=== PATIENT | female | born 1975 ===

== ENCOUNTER 2017-07-15 00:07 | Inpatient (IN) | payer SELFPAY ==
[2017-07-15] MEDS ORDERED: Misoprostol 25 MCG (1/4 of 100 MCG) Tab PO ONE ×5 (01:09→16:44)
[2017-07-15] MEDS ORDERED: Terbutaline 1 MG/ML SDV SUBCUT PRN (01:09)
[2017-07-15] MEDS ORDERED: Oxytocin/0.9 % Sodium Chloride 30 UNIT/500 ML BAG IV SCH ×2 (01:15→01:30)
[2017-07-15] MEDS ORDERED: Sodium Chloride 0.9% 10 ML Syringe FLUSH PRN (01:18)
[2017-07-15] MEDS ORDERED: Sodium Chloride 0.9% 2.5 ML Syringe FLUSH PRN (01:18)
[2017-07-15] MEDS ORDERED: Methylergonovine 0.2 MG/1 ML Amp IM PRN (01:18)
[2017-07-15] MEDS ORDERED: Carboprost Tromethamine 250 MCG/1 ML Amp IM PRN (01:18)
[2017-07-15] MEDS ORDERED: Nalbuphine 10 MG/1 ML Vial IVPUSH PRN (01:18)
[2017-07-15] MEDS ORDERED: Butorphanol 1 MG/ML SDV IVPUSH PRN (01:18)
[2017-07-15] MEDS ORDERED: Water For Irrigation,Sterile 1,000 ML Container IRR PRN (01:18)
[2017-07-15] MEDS ORDERED: Lidocaine 1% 50 ML MDV INJECT PRN (01:18)
[2017-07-15] MEDS ORDERED: Tranexamic Acid 1,000 MG in Sodium Chloride 0.9% 100 ML IV PRN (01:18)
[2017-07-15] MEDS ORDERED: Misoprostol 200 MCG Tab PO PRN (01:18)
[2017-07-15] MEDS: Misoprostol 25 MCG (1/4 of 100 MCG) Tab VAG SCH ×3 (02:09→17:13)
[2017-07-15] MEDS ORDERED: Misoprostol 50 MCG (1/2 of 100 MCG) Tab VAG ONE (06:00)
[2017-07-15] MEDS ORDERED: Ampicillin 2 GM in Sodium Chloride 0.9% 100 ML IV ONE (06:00)
[2017-07-15] MEDS ORDERED: Misoprostol 25 MCG (1/4 of 100 MCG) Tab VAG ONE (06:35)
[2017-07-15] MEDS ORDERED: Ampicillin 2 GM in Sodium Chloride 0.9% 100 ML IV PRN (08:23)
[2017-07-15] MEDS ORDERED: Docusate Sodium 100 MG Cap PO PRN (09:03)
[2017-07-15] MEDS: Prenatal Multivitamin and Multimineral with Iron Tab PO SCH (09:15)
[2017-07-15] MEDS: Ferrous Sulfate 325 MG Tab PO SCH (09:15)
[2017-07-15] MEDS: valACYclovir 500 MG Tab PO SCH (09:15)
[2017-07-15] MEDS: Ampicillin 1 GM in Sodium Chloride 0.9% 50 ML IV SCH ×3 (10:43→20:41)
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
[2017-07-15] MEDS ORDERED: Misoprostol 25 MCG (1/4 of 100 MCG) Tab ONE (16:50)
[2017-07-15] MEDS ORDERED: hydrOXYzine Pamoate 25 MG Cap PO PRN (20:44)
[2017-07-16] MEDS ORDERED: Misoprostol 25 MCG (1/4 of 100 MCG) Tab PO SCH (01:15)
[2017-07-16] MEDS: Lactated Ringers 1,000 ML IV SCH ×2 (02:06→17:40)
[2017-07-16] MEDS: Misoprostol 25 MCG (1/4 of 100 MCG) Tab VAG SCH ×4 (02:07→14:30)
[2017-07-16] MEDS: Misoprostol 25 MCG (1/4 of 100 MCG) Tab PO SCH ×4 (02:07→14:30)
[2017-07-16] MEDS: valACYclovir 500 MG Tab PO SCH (08:10)
[2017-07-16] MEDS: Prenatal Multivitamin and Multimineral with Iron Tab PO SCH (08:12)
--- NOTE | 2017-07-16 08:42 | PCM.PNLD ---
Labor Progress Note - VS & Meds Active Medications: Current Medications Butorphanol Tartrate (Stadol) 1 mg IVPUSH Q1H PRN PRN Reason: Pain Last Admin: 07/16/17 02:07 Dose: 1 mg Carboprost Tromethamine (Hemabate Ds) 250 mcg IM ASDIRECTED PRN PRN Reason: Post Hemorrhage Docusate Sodium (Colace) 100 mg PO DAILY PRN PRN Reason: Constipation Ferrous Sulfate (Ferrous Sulfate) 325 mg PO WITHBREAKFAST [facility] Last Admin: 07/15/17 09:15 Dose: 325 mg Hydroxyzine Pamoate (Vistaril) 50 mg PO BEDTIME PRN PRN Reason: sleep Last Admin: 07/15/17 21:06 Dose: 50 mg Oxytocin/Sodium Chloride (Oxytocin 30 Unit/500 Ml-Ns) 30 unit in 500 mls @ 2 mls/hr IV TITRATE [facility]; Protocol Lactated Ringer's (Ringers, Lactated) 1,000 mls @ 150 mls/hr IV ASDIRECTED [facility] Last Admin: 07/16/17 02:06 Dose: 150 mls/hr Oxytocin/Sodium Chloride (Oxytocin 30 Unit/500 Ml-Ns) 30 unit in 500 mls @ 500 mls/hr IV TITRATE [facility] Tranexamic Acid 1,000 mg/ (Sodium Chloride) 110 mls @ 660 mls/hr IV ONETIME PRN PRN Reason: Bleeding Ampicillin Sodium 1 gm/ Sodium (Chloride) 50 mls @ 100 mls/hr IV Q4H [facility] Last Admin: 07/15/17 20:41 Dose: Not Given Ampicillin Sodium 2 gm/ Sodium (Chloride) 100 mls @ 200 mls/hr IV ONETIME PRN PRN Reason: GBS + Lidocaine HCl (Xylocaine 1%) 50 ml INJECT .ONCE PRN PRN Reason: Laceration repair Methylergonovine Maleate (Methergine) 0.2 mg IM ASDIRECTED PRN PRN Reason: Post Hemorrhage Misoprostol (Cytotec) 200 mcg PO .ONCE PRN PRN Reason: Post Hemorrhage Misoprostol (Cytotec) 25 mcg PO Q4H [facility] Last Admin: 07/16/17 06:23 Dose: 25 mcg Misoprostol (Cytotec) 25 mcg VAG Q4H [facility] Last Admin: 07/16/17 06:23 Dose: 25 mcg Nalbuphine HCl (Nubain) 10 mg IVPUSH Q1H PRN PRN Reason: Pain (severe 7-10) Valacyclovir 1000 Mg 1 each PO DAILY [facility] Prenat Multivit/[place]/Iron/Folic Ac ( Mtr) 1 each PO DAILY [facility] Last Admin: 07/16/17 08:12 Dose: 1 each Sodium Chloride (Saline Flush) 10 ml FLUSH ASDIRECTED PRN PRN Reason: Keep Vein Open Sodium Chloride (Saline Flush) 2.5 ml FLUSH ASDIRECTED PRN PRN Reason: Keep Vein Open Sterile Water (Sterile Water For Irrigation) 1,000 ml IRR ASDIRECTED PRN PRN Reason: delivery Terbutaline Sulfate (Brethine) 0.25 mg SUBCUT ASDIRECTED PRN PRN Reason: Tacysystole Discontinued Medications Misoprostol (Cytotec) 25 mcg VAG .ONCE [facility] Last Admin: 07/15/17 17:13 Dose: 25 mcg Misoprostol (Cytotec) 25 mcg PO ONETIME ONE Stop: 07/15/17 01:10 Last Admin: 07/15/17 02:14 Dose: 25 mcg Misoprostol (Cytotec) 25 mcg PO ONETIME ONE Stop: 07/15/17 06:01 Last Admin: 07/15/17 07:00 Dose: 25 mcg Misoprostol (Cytotec) 25 mcg VAG ONETIME ONE Stop: 07/15/17 06:36 Last Admin: 07/15/17 06:57 Dose: 25 mcg Misoprostol (Cytotec) 25 mcg PO ONETIME ONE Stop: 07/15/17 11:35 Last Admin: 07/15/17 11:58 Dose: 25 mcg Misoprostol (Cytotec) 25 mcg PO ONETIME ONE Stop: 07/15/17 11:37 Last Admin: 07/15/17 13:41 Dose: Not Given Misoprostol (Cytotec) 25 mcg PO ONETIME ONE Stop: 07/15/17 16:45 Last Admin: 07/15/17 17:12 Dose: 25 mcg Misoprostol (Cytotec) Confirm Administered Dose 25 mcg .ROUTE .STK-MED ONE Stop: 07/15/17 16:51 Misoprostol (Cytotec) 25 mcg PO Q4H [facility] Valacyclovir HCl (Valtrex) 1,000 mg PO DAILY [facility] Last Admin: 07/16/17 08:10 Dose: 1,000 mg - Uterine Contractions Uterine Monitoring Mode: External Jaars Contraction Intensity: Moderate Uterine Resting Tone: Soft - Monitoring Monitor Mode: External Ultrasound Heart Rate (FHR) Variability: Moderate (6-25 bmp) Accelerations: Present, 15x15 Decelerations: None Strip Review: Category I - Vaginal Exam Station: -3 Cervical Position: Midposition - Labor Progress (Free Text) Labor Progress: Despite of using side effects the patient is have moderate contraction she have not have severe contraction she have not made any significant cervical dilatation 5-year-old walker very 1 her blood pressure is stable. Plan would continue with current management until late in the afternoon and the patient is still not dilated to 3 cm we will consider section option
[2017-07-16] MEDS ORDERED: ePHEDrine 50 MG/ML SDV ONE (16:31)
[2017-07-16] MEDS ORDERED: Ondansetron 4 MG/2 ML SDV ONE (16:31)
[2017-07-16] MEDS ORDERED: Oxytocin 10 Units/1 ML SDV ONE (16:31)
[2017-07-16] MEDS ORDERED: diphenhydrAMINE 50 MG/ML SDV ONE (16:31)
[2017-07-16] MEDS ORDERED: ceFAZolin 1 GM Vial ONE (16:32)
[2017-07-16] MEDS ORDERED: Sodium Chloride 0.9% 20 ML ONE (16:32)
[2017-07-16] MEDS ORDERED: Morphine PF 1 MG/ML Amp ONE (16:32)
[2017-07-16] MEDS ORDERED: fentaNYL 100 MCG/2 ML SDV ONE (16:32)
[2017-07-16] MEDS ORDERED: Sodium Chloride 0.9% 10 ML Syringe FLUSH PRN (16:52)
[2017-07-16] MEDS ORDERED: ceFAZolin 2 GM in Premix Bag 1 BAG IV ONE (16:52)
[2017-07-16] MEDS ORDERED: Sodium Chloride 0.9% 2.5 ML Syringe FLUSH PRN (16:52)
[2017-07-16] MEDS ORDERED: Oxytocin/0.9 % Sodium Chloride 30 UNIT/500 ML BAG IV SCH (17:00)
[2017-07-16] MEDS ORDERED: Lactated Ringers 1,000 ML IV SCH ×2 (17:00→18:45)
[2017-07-16] MEDS ORDERED: Citric Acid/Sodium Citrate Solution 30 ML Cup PO SCH (17:00)
[2017-07-16] MEDS ORDERED: Octyl 2-Cyanoacrylate 1 Tube ONE (17:03)
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
[2017-07-16] MEDS ORDERED: Phenylephrine/Normal Saline 100 MCG/ML 10 ML Syringe ONE (17:58)
[2017-07-16] MEDS ORDERED: Ondansetron 4 MG/2 ML SDV IVPUSH PRN (18:39)
[2017-07-16] MEDS ORDERED: Bisacodyl 10 MG Supp RECTAL PRN (18:39)
[2017-07-16] MEDS ORDERED: Acetaminophen/oxyCODONE 325-5 MG Tab PO PRN ×2 (18:39→19:01)
[2017-07-16] MEDS ORDERED: Lanolin 100% Cream 7 GM Tube TOP PRN (18:39)
[2017-07-16] MEDS ORDERED: diphenhydrAMINE 50 MG/ML SDV IVPUSH PRN (18:39)
--- NOTE | 2017-07-16 18:43 | PCM.OPNOTE ---
- General Post-Op/Procedure Note Date of Surgery/Procedure: 07/16/17 Operative Procedure(s): Primery C/section Pre Op Diagnosis: [id number] Post-Op Diagnosis: Same Anesthesia Technique: Spinal Primary Surgeon: Sebastian Davenport Local Government Legislator: Roselia Michael EBL in mLs: 700 Complications: None Condition: Good
--- NOTE | 2017-07-16 19:16 | PCM.POSTAN ---
POST ANESTHESIA ASSESSMENT - MENTAL STATUS Mental Status: Alert, Oriented - VITAL SIGNS Pulse Rate: 91 SaO2: 98 Resp Rate: 14 Blood Pressure: 130/62 - RESPIRATORY Respiratory Status: Respiratory Rate WNL, Airway Patent, O2 Saturation Stable - CARDIOVASCULAR CV Status: Pulse Rate WNL, Blood Pressure Stable - GASTROINTESTINAL GI Status: No Symptoms - PAIN Pain Score: 0 - POST OP HYDRATION Hydration Status: Adequate & Stable (spinal level T10)
[2017-07-16] MEDS: Ketorolac 30 MG/ML SDV IVPUSH SCH (20:10)
--- NOTE | 2017-07-16 21:23 | OR ---
SURGEON: Sebastian Davenport MD DATE OF PROCEDURE: PREOPERATIVE DIAGNOSES: High-risk intrauterine 38 weeks plus, failed induction. POSTOPERATIVE DIAGNOSES: High-risk intrauterine 38 weeks plus, failed induction. OPERATION PERFORMED: Primary low-transverse section. GENERATOR SWITCHBOARD OPERATOR: Roselia Michael CNM. ANESTHESIA: Spinal. ANESTHESIOLOGIST: Floyd Gonzalez M.D. ESTIMATED BLOOD LOSS: 700 mL. COMPLICATIONS: None. PLUSH BRUSHER: Pearl Tucker M.D. FINDINGS: Male fetus. score reported to be 8 and 9. Normal uterus, tubes, and ovaries. INDICATION FOR SURGERY: This patient is at high risk. She has had advanced maternal age. She is 42. She is hypertensive. She is on medication. She is admitted at 38+ weeks for elective induction. After a trial of induction with Cytotec for two days and the induction was not successful, so a decision was made to do an elective primary low-transverse section. PROCEDURE IN DETAIL: The patient was brought to the OR, properly identified and after adequate level of spinal anesthesia with a Lehman catheter in the bladder, the patient was prepped and draped in sterile fashion as usual. Low transverse Pfannenstiel skin incision was done. Susan's fascia and rectus fascia were opened in direction of the incision. The 2 recti muscles were and peritoneal cavity was entered. The bladder flap was raised in the usual manner pushing the bladder away from the lower uterine segment. Low transverse uterine incision was done, extended manually, and fetus was in a vertex position, delivered without any problem, cried immediately, handed to the hospital medicine director, who was present at the time of delivery for resuscitation. The score later on reported to be 8 and 9. The weight is not available. The placenta delivered spontaneous, complete, and intact, and then repair of the lower uterine segment was done with 2-0 Vicryl continuous interlocking in 2 layers. Reperitonealization done with 3-0 Vicryl continuous. The peritoneal cavity evacuated completely from all blood and blood clot and closed with 3-0 Vicryl continuous. The rectus fascia was closed with #1 PDS double strand continuous, and then Tom-Taylor was placed. The subcuticular tissue was brought in through separate opening, and then the Susan's fascia was closed with 3-0 Vicryl continuous, and the skin closed with 3-0 Vicryl on a Sacha needle and Dermabond. Instrument and sponge counts were correct. The patient tolerated the procedure well, went to recovery room in stable general condition. ARSALAN MONCADA /[id number]
[2017-07-17] MEDS: Nalbuphine 10 MG/1 ML Vial IVPUSH PRN ×2 (01:38→06:27)
[2017-07-17] MEDS: Ketorolac 30 MG/ML SDV IVPUSH SCH ×4 (02:16→20:05)
[2017-07-17] MEDS: Ferrous Sulfate 325 MG Tab PO SCH ×2 (08:21→09:05)
[2017-07-17] MEDS: Misoprostol 25 MCG (1/4 of 100 MCG) Tab VAG SCH ×4 (08:22→16:42)
[2017-07-17] MEDS: Misoprostol 25 MCG (1/4 of 100 MCG) Tab PO SCH ×3 (08:22→13:33)
[2017-07-17] MEDS: Docusate Sodium 100 MG Cap PO SCH ×3 (08:23→20:05)
[2017-07-17] MEDS: Prenatal Multivitamin and Multimineral with Iron Tab PO SCH (09:05)
--- NOTE | 2017-07-17 09:12 | PCM.SURGPN ---
- General Info Date of Service: 07/17/17 POD#: 1 Functional Status: Reports: Pain Controlled - Review of Systems General: Reports: No Symptoms HEENT: Reports: No Symptoms Pulmonary: Reports: No Symptoms Cardiovascular: Reports: No Symptoms Gastrointestinal: Reports: No Symptoms Genitourinary: Reports: No Symptoms Musculoskeletal: Reports: No Symptoms Skin: Reports: No Symptoms Neurological: Reports: No Symptoms Psychiatric: Reports: No Symptoms - Patient Data Vitals - Most Recent: Last Vital Signs Temp 37.1 C 07/17/17 04:00 Pulse 89 07/17/17 07:00 Resp 20 07/17/17 07:00 BP 118/58 L 07/17/17 04:00 Pulse Ox 97 07/17/17 07:00 Weight - Most Recent: 108.635 kg I&O - Last 24 Hours: Intake & Output 07/16/17 07/17/17 07/17/17 22:59 06:59 14:59 Intake Total 800 500 Output Total 185 687 Balance 615 -187 Lab Results Last 24 Hrs: Laboratory Results - last 24 hr 07/17/17 Range/Units 05:33 Hgb 9.6 L (12.0-16.0) g/dL Hct 27.4 L (36.0-46.0) % Med Orders - Current: Current Medications Bisacodyl (Dulcolax) 10 mg RECTAL .ONCE PRN PRN Reason: Constipation Butorphanol Tartrate (Stadol) 1 mg IVPUSH Q1H PRN PRN Reason: Pain Last Admin: 07/16/17 02:07 Dose: 1 mg Carboprost Tromethamine (Hemabate Ds) 250 mcg IM ASDIRECTED PRN PRN Reason: Post Hemorrhage Citric Acid/Sodium Citrate (Bicitra Solution) 30 ml PO .ONCE [facility] Last Admin: 07/16/17 17:17 Dose: 30 ml Diphenhydramine HCl (Benadryl) 25 mg IVPUSH Q6H PRN PRN Reason: Itching or Nausea Last Admin: 07/17/17 00:10 Dose: 25 mg Docusate Sodium (Colace) 100 mg PO DAILY PRN PRN Reason: Constipation Docusate Sodium (Colace) 100 mg PO BID [facility] Last Admin: 07/17/17 09:05 Dose: Not Given Emollient Ointment (Lansinoh Hpa) 0 gm TOP ASDIRECTED PRN PRN Reason: Sore Nipples Ferrous Sulfate (Ferrous Sulfate) 325 mg PO WITHBREAKFAST [facility] Last Admin: 07/17/17 09:05 Dose: Not Given Hydroxyzine Pamoate (Vistaril) 50 mg PO BEDTIME PRN PRN Reason: sleep Last Admin: 07/15/17 21:06 Dose: 50 mg Oxytocin/Sodium Chloride (Oxytocin 30 Unit/500 Ml-Ns) 30 unit in 500 mls @ 2 mls/hr IV TITRATE [facility]; Protocol Lactated Ringer's (Ringers, Lactated) 1,000 mls @ 150 mls/hr IV ASDIRECTED [facility] Last Admin: 07/16/17 17:40 Dose: 150 mls/hr Oxytocin/Sodium Chloride (Oxytocin 30 Unit/500 Ml-Ns) 30 unit in 500 mls @ 500 mls/hr IV TITRATE [facility] Tranexamic Acid 1,000 mg/ (Sodium Chloride) 110 mls @ 660 mls/hr IV ONETIME PRN PRN Reason: Bleeding Ampicillin Sodium 1 gm/ Sodium (Chloride) 50 mls @ 100 mls/hr IV Q4H [facility] Last Admin: 07/15/17 20:41 Dose: Not Given Ampicillin Sodium 2 gm/ Sodium (Chloride) 100 mls @ 200 mls/hr IV ONETIME PRN PRN Reason: GBS + Oxytocin/Sodium Chloride (Oxytocin 30 Unit/500 Ml-Ns) 30 unit in 500 mls @ 250 mls/hr IV TITRATE [facility] Lactated Ringer's (Ringers, Lactated) 1,000 mls @ 500 mls/hr IV .BOLUS [facility] Lactated Ringer's (Ringers, Lactated) 1,000 mls @ 125 mls/hr IV ASDIRECTED [facility] Last Admin: 07/16/17 22:45 Dose: 125 mls/hr Ibuprofen (Motrin) 800 mg PO Q8H PRN PRN Reason: mild pain or fever Ketorolac Tromethamine (Toradol) 30 mg IVPUSH Q6H [facility] Stop: 07/17/17 20:01 Last Admin: 07/17/17 08:59 Dose: 30 mg Lidocaine HCl (Xylocaine 1%) 50 ml INJECT .ONCE PRN PRN Reason: Laceration repair Methylergonovine Maleate (Methergine) 0.2 mg IM ASDIRECTED PRN PRN Reason: Post Hemorrhage Misoprostol (Cytotec) 200 mcg PO .ONCE PRN PRN Reason: Post Hemorrhage Misoprostol (Cytotec) 25 mcg PO Q4H [facility] Last Admin: 07/17/17 08:22 Dose: Not Given Misoprostol (Cytotec) 25 mcg VAG Q4H [facility] Last Admin: 07/17/17 08:23 Dose: Not Given Nalbuphine HCl (Nubain) 10 mg IVPUSH Q1H PRN PRN Reason: Pain (severe 7-10) Nalbuphine HCl (Nubain) 5 mg IVPUSH Q3H PRN PRN Reason: Pruritis Stop: 07/17/17 19:03 Last Admin: 07/17/17 06:27 Dose: 5 mg Ondansetron HCl (Zofran) 4 mg IVPUSH Q4H PRN PRN Reason: Nausea/Vomiting Oxycodone/Acetaminophen (Percocet 325-5 Mg) 1 tab PO Q4H PRN PRN Reason: Pain (moderate 4-6) Oxycodone/Acetaminophen (Percocet 325-5 Mg) 2 tab PO Q4H PRN PRN Reason: Pain (moderate 4-6) Oxycodone/Acetaminophen (Percocet 325-5 Mg) 1 tab PO Q6H PRN PRN Reason: Pain (moderate 4-6) Stop: 07/17/17 19:01 Last Admin: 07/16/17 22:47 Dose: 1 tab Valacyclovir 1000 Mg 1 each PO DAILY [facility] Last Admin: 07/17/17 09:04 Dose: 1 each Prenat Multivit/Children[employer]/Iron/Folic Ac ( Mtr) 1 each PO DAILY [facility] Last Admin: 07/17/17 09:05 Dose: Not Given Sodium Chloride (Saline Flush) 10 ml FLUSH ASDIRECTED PRN PRN Reason: Keep Vein Open Sodium Chloride (Saline Flush) 2.5 ml FLUSH ASDIRECTED PRN PRN Reason: Keep Vein Open Sodium Chloride (Saline Flush) 10 ml FLUSH ASDIRECTED PRN PRN Reason: Keep Vein Open Sodium Chloride (Saline Flush) 2.5 ml FLUSH ASDIRECTED PRN PRN Reason: Keep Vein Open Sterile Water (Sterile Water For Irrigation) 1,000 ml IRR ASDIRECTED PRN PRN Reason: delivery Terbutaline Sulfate (Brethine) 0.25 mg SUBCUT ASDIRECTED PRN PRN Reason: Tacysystole Discontinued Medications Cefazolin Sodium (Ancef) Confirm Administered Dose 2 gm .ROUTE .STK-MED ONE Stop: 07/16/17 16:33 Diphenhydramine HCl (Benadryl) Confirm Administered Dose 50 mg .ROUTE .STK-MED ONE Stop: 07/16/17 16:32 Ephedrine Sulfate (Ephedrine Sulfate) Confirm Administered Dose 50 mg .ROUTE .STK-MED ONE Stop: 07/16/17 16:32 Fentanyl (Sublimaze) Confirm Administered Dose 100 mcg .ROUTE .STK-MED ONE Stop: 07/16/17 16:33 Sodium Chloride (Normal Saline) Confirm Administered Dose 20 mls @ as directed .ROUTE .STK-MED ONE Stop: 07/16/17 16:33 Cefazolin Sodium/Dextrose 2 gm (/ Premix) 50 mls @ 100 mls/hr IV ONETIME ONE Stop: 07/16/17 17:21 Last Admin: 07/17/17 08:21 Dose: Not Given Misoprostol (Cytotec) 25 mcg VAG .ONCE [facility] Last Admin: 07/15/17 17:13 Dose: 25 mcg Misoprostol (Cytotec) 25 mcg PO ONETIME ONE Stop: 07/15/17 01:10 Last Admin: 07/15/17 02:14 Dose: 25 mcg Misoprostol (Cytotec) 25 mcg PO ONETIME ONE Stop: 07/15/17 06:01 Last Admin: 07/15/17 07:00 Dose: 25 mcg Misoprostol (Cytotec) 25 mcg VAG ONETIME ONE Stop: 07/15/17 06:36 Last Admin: 07/15/17 06:57 Dose: 25 mcg Misoprostol (Cytotec) 25 mcg PO ONETIME ONE Stop: 07/15/17 11:35 Last Admin: 07/15/17 11:58 Dose: 25 mcg Misoprostol (Cytotec) 25 mcg PO ONETIME ONE Stop: 07/15/17 11:37 Last Admin: 07/15/17 13:41 Dose: Not Given Misoprostol (Cytotec) 25 mcg PO ONETIME ONE Stop: 07/15/17 16:45 Last Admin: 07/15/17 17:12 Dose: 25 mcg Misoprostol (Cytotec) Confirm Administered Dose 25 mcg .ROUTE .STK-MED ONE Stop: 07/15/17 16:51 Misoprostol (Cytotec) 25 mcg PO Q4H [facility] Morphine Sulfate (Duramorph Pf) Confirm Administered Dose 1 mg .ROUTE .STK-MED ONE Stop: 07/16/17 16:33 Octyl Cyanoacrylate (Dermabond Advance) Confirm Administered Dose 1 applic .ROUTE .STK-MED ONE Stop: 07/16/17 17:04 Ondansetron HCl (Zofran) Confirm Administered Dose 4 mg .ROUTE .STK-MED ONE Stop: 07/16/17 16:32 Oxytocin (Pitocin) Confirm Administered Dose 20 unit .ROUTE .STK-MED ONE Stop: 07/16/17 16:32 Phenylephrine HCl (Phenylephrine In Ns 100 Mcg/Ml) Confirm Administered Dose 1 mg .ROUTE .STK-MED ONE Stop: 07/16/17 17:59 Valacyclovir HCl (Valtrex) 1,000 mg PO DAILY [facility] Last Admin: 07/16/17 08:10 Dose: 1,000 mg - Exam Wound/Incisions: Healing Well General: Alert, Oriented HEENT: Pupils Equal Neck: Supple Lungs: Clear to Auscultation, Normal Respiratory Effort Cardiovascular: Regular Rate, Regular Rhythm GI/Abdominal Exam: Normal Bowel Sounds, Soft, Non-Tender, No Organomegaly, No Distention, No Abnormal Bruit, No Mass, Pelvis Stable Extremities: Normal Inspection, Normal Range of Motion, Non-Tender, No Pedal Edema, Normal Capillary Refill Skin: Warm, Dry, Intact Neurological: No New Focal Deficit Psy/Mental Status: Alert, Normal Affect, Normal Mood - Problem List Review Problem List Initiated/Reviewed/Updated: Yes - My Orders Last 24 Hours: Active Orders 24 hr Category Date Time Status Patient Status [ADT] Routine ADT 07/16/17 18:39 Active Ambulate [RC] PER UNIT ROUTINE Care 07/16/17 18:39 Active Bradycardia-Neuroaxis [employer] [RC] ROUTINE Care 07/16/17 19:00 Active Communication Order [RC] PER UNIT ROUTINE Care 07/16/17 18:39 Active Communication Order [RC] PER UNIT ROUTINE Care 07/16/17 18:40 Active Communication Order [RC] Per Unit Routine Care 07/16/17 18:39 Active EKG 12 Lead [EKG Documentation Completion] [RC] URGENT Care 07/16/17 17:22 Active Hypertension-Neuroaxis [employer] [RC] ROUTINE Care 07/16/17 19:00 Active Hypotension-Neuroaxis [employer] [RC] ROUTINE Care 07/16/17 19:00 Active May Shower [RC] ASDIRECTED Care 07/16/17 18:39 Active Notify Provider Vital Signs [RC] PRN Care 07/16/17 16:52 Active Oxygen Therapy [RC] ASDIRECTED Care 07/16/17 19:01 Active Oxygen Therapy [RC] PER UNIT ROUTINE Care 07/16/17 19:01 Active RT Incentive Spirometry [RC] Q2HWA Care 07/16/17 18:39 Active Up ad Eunice [RC] ASDIRECTED Care 07/16/17 16:57 Active Vital Signs [RC] PER UNIT ROUTINE Care 07/16/17 18:39 Active Vital Signs [RC] Q1H Care 07/16/17 19:01 Active Acetaminophen/oxyCODONE [Percocet 325-5 MG] Med 07/16/17 18:39 Active 1 tab PO Q4H PRN Acetaminophen/oxyCODONE [Percocet 325-5 MG] Med 07/16/17 19:01 Active 1 tab PO Q6H PRN Acetaminophen/oxyCODONE [Percocet 325-5 MG] Med 07/16/17 18:39 Active 2 tab PO Q4H PRN Bisacodyl [Dulcolax] Med 07/16/17 18:39 Active 10 mg RECTAL .ONCE PRN Citric Acid/Sodium Citrate [Bicitra Solution] Med 07/16/17 17:00 Active 30 ml PO .ONCE Docusate Sodium [Colace] Med 07/16/17 21:00 Active 100 mg PO BID Ibuprofen [Motrin] Med 07/18/17 02:00 Active 800 mg PO Q8H PRN Ketorolac [Toradol] Med 07/16/17 20:00 Active 30 mg IVPUSH Q6H Lactated Ringers [Ringers, Lactated] 1,000 ml Med 07/16/17 17:00 Active IV .BOLUS Lactated Ringers [Ringers, Lactated] 1,000 ml Med 07/16/17 18:45 Active IV ASDIRECTED Lanolin [Lansinoh HPA] Med 07/16/17 18:39 Active See Dose Instructions TOP ASDIRECTED PRN Nalbuphine [Nubain] Med 07/16/17 19:02 Active 5 mg IVPUSH Q3H PRN Ondansetron [Zofran] Med 07/16/17 18:39 Active 4 mg IVPUSH Q4H PRN Oxytocin/0.9 % Sodium Chloride [Oxytocin 30 Unit/500 ML Med 07/16/17 17:00 Active -NS] 30 unit in 500 ml IV TITRATE Sodium Chloride 0.9% [Saline Flush] Med 07/16/17 16:52 Active 10 ml FLUSH ASDIRECTED PRN Sodium Chloride 0.9% [Saline Flush] Med 07/16/17 16:52 Active 2.5 ml FLUSH ASDIRECTED PRN diphenhydrAMINE [Benadryl] Med 07/16/17 18:39 Active 25 mg IVPUSH Q6H PRN AN Neuroaxis [employer] Precaution Reflex [OM.PC] PER Ot 07/16/17 19:00 Ordered UNIT ROUTINE AN Neuroaxis [employer] Precaution Reflex [OM.PC] PER Oth 07/17/17 19:00 Ordered UNIT ROUTINE Assess Lochia [WOMSER] Per Unit Routine Ot 07/16/17 18:39 Ordered Assess Uterine Involution [WOMSER] Per Unit Routine Oth 07/16/17 18:39 Ordered Breast Pump [WOMSER] Per Unit Routine Ot 07/16/17 18:39 Ordered Peripheral IV Discontinue [OM.PC] Routine Ot 07/16/17 18:40 Ordered Peripheral IV Insertion Adult [OM.PC] Routine Oth 07/16/17 16:57 Ordered Schedule Procedure [COMM] Per Unit Routine Oth 07/16/17 16:57 Ordered Sequential Compression Device [OM.PC] Per Unit Routine Ot 07/16/17 18:39 Ordered Medication Orders Bisacodyl (Dulcolax) 10 mg RECTAL .ONCE PRN PRN Reason: Constipation Butorphanol Tartrate (Stadol) 1 mg IVPUSH Q1H PRN PRN Reason: Pain Last Admin: 07/16/17 02:07 Dose: 1 mg Carboprost Tromethamine (Hemabate Ds) 250 mcg IM ASDIRECTED PRN PRN Reason: Post Hemorrhage Citric Acid/Sodium Citrate (Bicitra Solution) 30 ml PO .ONCE [facility] Last Admin: 07/16/17 17:17 Dose: 30 ml Diphenhydramine HCl (Benadryl) 25 mg IVPUSH Q6H PRN PRN Reason: Itching or Nausea Last Admin: 07/17/17 00:10 Dose: 25 mg Docusate Sodium (Colace) 100 mg PO DAILY PRN PRN Reason: Constipation Docusate Sodium (Colace) 100 mg PO BID [facility] Last Admin: 07/17/17 09:05 Dose: Not Given Admin: 07/17/17 08:23 Dose: Emollient Ointment (Lansinoh Hpa) 0 gm TOP ASDIRECTED PRN PRN Reason: Sore Nipples Ferrous Sulfate (Ferrous Sulfate) 325 mg PO WITHBREAKFAST [facility] Last Admin: 07/17/17 09:05 Dose: Not Given Admin: 07/17/17 08:21 Dose: Admin: 07/15/17 09:15 Dose: 325 mg Hydroxyzine Pamoate (Vistaril) 50 mg PO BEDTIME PRN PRN Reason: sleep Last Admin: 07/15/17 21:06 Dose: 50 mg Oxytocin/Sodium Chloride (Oxytocin 30 Unit/500 Ml-Ns) 30 unit in 500 mls @ 2 mls/hr IV TITRATE [facility]; Protocol Lactated Ringer's (Ringers, Lactated) 1,000 mls @ 150 mls/hr IV ASDIRECTED [facility] Last Admin: 07/16/17 17:40 Dose: 150 mls/hr Infusion: 07/16/17 08:47 Dose: 150 mls/hr Admin: 07/16/17 02:06 Dose: 150 mls/hr Oxytocin/Sodium Chloride (Oxytocin 30 Unit/500 Ml-Ns) 30 unit in 500 mls @ 500 mls/hr IV TITRATE [facility] Tranexamic Acid 1,000 mg/ (Sodium Chloride) 110 mls @ 660 mls/hr IV ONETIME PRN PRN Reason: Bleeding Ampicillin Sodium 1 gm/ Sodium (Chloride) 50 mls @ 100 mls/hr IV Q4H [facility] Last Admin: 07/15/17 20:41 Dose: Admin: 07/15/17 16:47 Dose: Not Given Admin: 07/15/17 10:43 Dose: Not Given Ampicillin Sodium 2 gm/ Sodium (Chloride) 100 mls @ 200 mls/hr IV ONETIME PRN PRN Reason: GBS + Oxytocin/Sodium Chloride (Oxytocin 30 Unit/500 Ml-Ns) 30 unit in 500 mls @ 250 mls/hr IV TITRATE [facility] Lactated Ringer's (Ringers, Lactated) 1,000 mls @ 500 mls/hr IV .BOLUS [facility] Lactated Ringer's (Ringers, Lactated) 1,000 mls @ 125 mls/hr IV ASDIRECTED [facility] Last Admin: 07/16/17 22:45 Dose: 125 mls/hr Ibuprofen (Motrin) 800 mg PO Q8H PRN PRN Reason: mild pain or fever Ketorolac Tromethamine (Toradol) 30 mg IVPUSH Q6H [facility] Stop: 07/17/17 20:01 Last Admin: 07/17/17 08:59 Dose: 30 mg Admin: 07/17/17 02:16 Dose: 30 mg Admin: 07/16/17 20:10 Dose: 30 mg Lidocaine HCl (Xylocaine 1%) 50 ml INJECT .ONCE PRN PRN Reason: Laceration repair Methylergonovine Maleate (Methergine) 0.2 mg IM ASDIRECTED PRN PRN Reason: Post Hemorrhage Misoprostol (Cytotec) 200 mcg PO .ONCE PRN PRN Reason: Post Hemorrhage Misoprostol (Cytotec) 25 mcg PO Q4H [facility] Last Admin: 07/17/17 08:22 Dose: Admin: 07/17/17 08:22 Dose: Admin: 07/17/17 08:22 Dose: Admin: 07/17/17 08:22 Dose: Admin: 07/16/17 14:30 Dose: 25 mcg Admin: 07/16/17 10:28 Dose: 25 mcg Admin: 07/16/17 06:23 Dose: 25 mcg Admin: 07/16/17 02:07 Dose: 25 mcg Misoprostol (Cytotec) 25 mcg VAG Q4H [facility] Last Admin: 07/17/17 08:23 Dose: Admin: 07/17/17 08:23 Dose: Admin: 07/17/17 08:23 Dose: Admin: 07/17/17 08:22 Dose: Admin: 07/16/17 14:30 Dose: 25 mcg Admin: 07/16/17 10:29 Dose: 25 mcg Admin: 07/16/17 06:23 Dose: 25 mcg Admin: 07/16/17 02:07 Dose: 25 mcg Nalbuphine HCl (Nubain) 10 mg IVPUSH Q1H PRN PRN Reason: Pain (severe 7-10) Nalbuphine HCl (Nubain) 5 mg IVPUSH Q3H PRN PRN Reason: Pruritis Stop: 07/17/17 19:03 Last Admin: 07/17/17 06:27 Dose: 5 mg Admin: 07/17/17 01:38 Dose: 5 mg Ondansetron HCl (Zofran) 4 mg IVPUSH Q4H PRN PRN Reason: Nausea/Vomiting Oxycodone/Acetaminophen (Percocet 325-5 Mg) 1 tab PO Q4H PRN PRN Reason: Pain (moderate 4-6) Oxycodone/Acetaminophen (Percocet 325-5 Mg) 2 tab PO Q4H PRN PRN Reason: Pain (moderate 4-6) Oxycodone/Acetaminophen (Percocet 325-5 Mg) 1 tab PO Q6H PRN PRN Reason: Pain (moderate 4-6) Stop: 07/17/17 19:01 Last Admin: 07/16/17 22:47 Dose: 1 tab Valacyclovir 1000 Mg 1 each PO DAILY [facility] Last Admin: 07/17/17 09:04 Dose: 1 each Admin: 07/17/17 08:21 Dose: Prenat Multivit/Ju[place] Diaz/Iron/Folic Ac ( Mtr) 1 each PO DAILY [facility] Last Admin: 07/17/17 09:05 Dose: Not Given Admin: 07/16/17 08:12 Dose: 1 each Admin: 07/15/17 09:15 Dose: 1 each Sodium Chloride (Saline Flush) 10 ml FLUSH ASDIRECTED PRN PRN Reason: Keep Vein Open Sodium Chloride (Saline Flush) 2.5 ml FLUSH ASDIRECTED PRN PRN Reason: Keep Vein Open Sodium Chloride (Saline Flush) 10 ml FLUSH ASDIRECTED PRN PRN Reason: Keep Vein Open Sodium Chloride (Saline Flush) 2.5 ml FLUSH ASDIRECTED PRN PRN Reason: Keep Vein Open Sterile Water (Sterile Water For Irrigation) 1,000 ml IRR ASDIRECTED PRN PRN Reason: delivery Terbutaline Sulfate (Brethine) 0.25 mg SUBCUT ASDIRECTED PRN PRN Reason: Tacysystole - Assessment Assessment (Free Text/Narrative):: S/P C/section doing well.
--- NOTE | 2017-07-17 10:28 | PCM48HPAN ---
Post Anesthesia Note - EVALUATION WITHIN 48HRS OF ANESTHETIC Vital Signs in Normal Range: Yes Patient Participated in Evaluation: Yes Respiratory Function Stable: Yes Airway Patent: Yes Cardiovascular Function Stable: Yes Hydration Status Stable: Yes Pain Control Satisfactory: Yes Nausea and Vomiting Control Satisfactory: Yes Mental Status Recovered: Yes Pulse Rate: 91 Resp Rate: 18 Blood Pressure: 130/62 - COMMENTS/OBSERVATIONS Free Text/Narrative:: no complications noted
[2017-07-18] MEDS: Ibuprofen 800 MG Tab PO PRN ×2 (02:10→12:15)
[2017-07-18] MEDS: Acetaminophen/oxyCODONE 325-5 MG Tab PO PRN ×2 (05:08→09:24)
[2017-07-18] MEDS: Ferrous Sulfate 325 MG Tab PO SCH (07:26)
[2017-07-18] MEDS: Prenatal Multivitamin and Multimineral with Iron Tab PO SCH (07:30)
[2017-07-18] MEDS: Docusate Sodium 100 MG Cap PO SCH (07:39)
--- NOTE | 2017-07-18 08:55 | PCM.DCSUM1 ---
Discharge Summary - Discharge Data Discharge Date: 07/18/17 Discharge Disposition: Home, Self-Care 01 Condition: Good - Patient Summary/Data Operative Procedure(s) Performed: Primery C/section - Patient Instructions Diet: Usual Diet as Tolerated Activity: As Tolerated Driving: Do Not Drive Showering/Bathing: August Shower Wound/Incision Care: Keep Operative Site/Wound Site Clean and Dry Notify Provider of: Fever, Increased Pain, Nausea and/or Vomiting - Discharge Plan Home Medications: Home Meds Albuterol [Ventolin HFA] 1 - 2 puff INH PRN 06/06/17 [History] PNV95/Ferrous Fumarate/FA [ Tablet] 1 tab PO DAILY 06/06/17 [History] Docusate Sodium 1 cap PO DAILY 07/15/17 [History] Ferrous Sulfate [Iron] 1 tab PO DAILY 07/15/17 [History] valACYclovir [Valtrex] 1,000 mg PO DAILY 07/15/17 [History] Referrals: [facility] [Outside] Sebastian Davenport MD [Physician] - (1 week- July 23 @ 1:30pm w/ Dr. Davenport 6 week- August 26 @ 10:45am w/ Dr. Davenport) - General Info Date of Service: 07/18/17 Functional Status: Reports: Pain Controlled - Review of Systems General: Reports: No Symptoms HEENT: Reports: No Symptoms Pulmonary: Reports: No Symptoms Cardiovascular: Reports: No Symptoms Gastrointestinal: Reports: No Symptoms Genitourinary: Reports: No Symptoms Musculoskeletal: Reports: No Symptoms Skin: Reports: No Symptoms Neurological: Reports: No Symptoms Psychiatric: Reports: No Symptoms - Patient Data Vitals - Most Recent: Last Vital Signs Temp 36.9 C 07/18/17 06:00 Pulse 97 07/18/17 06:00 Resp 18 07/18/17 06:00 BP 131/78 07/18/17 06:00 Pulse Ox 97 07/18/17 06:00 Weight - Most Recent: 108.635 kg I&O - Last 24 hours: Intake & Output 07/17/17 07/18/17 07/18/17 22:59 06:59 14:59 Output Total 1722 10 Balance -1722 -10 Med Orders - Current: Current Medications Bisacodyl (Dulcolax) 10 mg RECTAL .ONCE PRN PRN Reason: Constipation Butorphanol Tartrate (Stadol) 1 mg IVPUSH Q1H PRN PRN Reason: Pain Last Admin: 07/16/17 02:07 Dose: 1 mg Carboprost Tromethamine (Hemabate Ds) 250 mcg IM ASDIRECTED PRN PRN Reason: Post Hemorrhage Citric Acid/Sodium Citrate (Bicitra Solution) 30 ml PO .ONCE FAIZA Last Admin: 07/16/17 17:17 Dose: 30 ml Diphenhydramine HCl (Benadryl) 25 mg IVPUSH Q6H PRN PRN Reason: Itching or Nausea Last Admin: 07/17/17 00:10 Dose: 25 mg Docusate Sodium (Colace) 100 mg PO DAILY PRN PRN Reason: Constipation Docusate Sodium (Colace) 100 mg PO BID [facility] Last Admin: 07/18/17 07:39 Dose: 100 mg Emollient Ointment (Lansinoh Hpa) 0 gm TOP ASDIRECTED PRN PRN Reason: Sore Nipples Ferrous Sulfate (Ferrous Sulfate) 325 mg PO WITHBREAKFAST [facility] Last Admin: 07/17/17 09:05 Dose: Not Given Hydroxyzine Pamoate (Vistaril) 50 mg PO BEDTIME PRN PRN Reason: sleep Last Admin: 07/15/17 21:06 Dose: 50 mg Oxytocin/Sodium Chloride (Oxytocin 30 Unit/500 Ml-Ns) 30 unit in 500 mls @ 2 mls/hr IV TITRATE [facility]; Protocol Lactated Ringer's (Ringers, Lactated) 1,000 mls @ 150 mls/hr IV ASDIRECTED [facility] Last Admin: 07/16/17 17:40 Dose: 150 mls/hr Oxytocin/Sodium Chloride (Oxytocin 30 Unit/500 Ml-Ns) 30 unit in 500 mls @ 500 mls/hr IV TITRATE FAIZA Tranexamic Acid 1,000 mg/ (Sodium Chloride) 110 mls @ 660 mls/hr IV ONETIME PRN PRN Reason: Bleeding Ampicillin Sodium 1 gm/ Sodium (Chloride) 50 mls @ 100 mls/hr IV Q4H [facility] Last Admin: 07/15/17 20:41 Dose: Not Given Ampicillin Sodium 2 gm/ Sodium (Chloride) 100 mls @ 200 mls/hr IV ONETIME PRN PRN Reason: GBS + Oxytocin/Sodium Chloride (Oxytocin 30 Unit/500 Ml-Ns) 30 unit in 500 mls @ 250 mls/hr IV TITRATE [facility] Lactated Ringer's (Ringers, Lactated) 1,000 mls @ 500 mls/hr IV .BOLUS [facility] Lactated Ringer's (Ringers, Lactated) 1,000 mls @ 125 mls/hr IV ASDIRECTED [facility] Last Admin: 07/16/17 22:45 Dose: 125 mls/hr Ibuprofen (Motrin) 800 mg PO Q8H PRN PRN Reason: mild pain or fever Last Admin: 07/18/17 02:10 Dose: 800 mg Lidocaine HCl (Xylocaine 1%) 50 ml INJECT .ONCE PRN PRN Reason: Laceration repair Methylergonovine Maleate (Methergine) 0.2 mg IM ASDIRECTED PRN PRN Reason: Post Hemorrhage Misoprostol (Cytotec) 200 mcg PO .ONCE PRN PRN Reason: Post Hemorrhage Misoprostol (Cytotec) 25 mcg PO Q4H [facility] Last Admin: 07/17/17 13:33 Dose: Not Given Misoprostol (Cytotec) 25 mcg VAG Q4H [facility] Last Admin: 07/17/17 16:42 Dose: Not Given Nalbuphine HCl (Nubain) 10 mg IVPUSH Q1H PRN PRN Reason: Pain (severe 7-10) Ondansetron HCl (Zofran) 4 mg IVPUSH Q4H PRN PRN Reason: Nausea/Vomiting Oxycodone/Acetaminophen (Percocet 325-5 Mg) 1 tab PO Q4H PRN PRN Reason: Pain (moderate 4-6) Last Admin: 07/17/17 23:44 Dose: 1 tab Oxycodone/Acetaminophen (Percocet 325-5 Mg) 2 tab PO Q4H PRN PRN Reason: Pain (moderate 4-6) Last Admin: 07/18/17 05:08 Dose: 2 tab Valacyclovir 1000 Mg 1 each PO DAILY [facility] Last Admin: 07/18/17 07:30 Dose: 1 each Prenat Multivit/[place]/Iron/Folic Ac ( Mtr) 1 each PO DAILY [facility] Last Admin: 07/18/17 07:30 Dose: 1 each Sodium Chloride (Saline Flush) 10 ml FLUSH ASDIRECTED PRN PRN Reason: Keep Vein Open Sodium Chloride (Saline Flush) 2.5 ml FLUSH ASDIRECTED PRN PRN Reason: Keep Vein Open Sodium Chloride (Saline Flush) 10 ml FLUSH ASDIRECTED PRN PRN Reason: Keep Vein Open Sodium Chloride (Saline Flush) 2.5 ml FLUSH ASDIRECTED PRN PRN Reason: Keep Vein Open Sterile Water (Sterile Water For Irrigation) 1,000 ml IRR ASDIRECTED PRN PRN Reason: delivery Terbutaline Sulfate (Brethine) 0.25 mg SUBCUT ASDIRECTED PRN PRN Reason: Tacysystole Discontinued Medications Cefazolin Sodium (Ancef) Confirm Administered Dose 2 gm .ROUTE .STK-MED ONE Stop: 07/16/17 16:33 Diphenhydramine HCl (Benadryl) Confirm Administered Dose 50 mg .ROUTE .STK-MED ONE Stop: 07/16/17 16:32 Ephedrine Sulfate (Ephedrine Sulfate) Confirm Administered Dose 50 mg .ROUTE .STK-MED ONE Stop: 07/16/17 16:32 Fentanyl (Sublimaze) Confirm Administered Dose 100 mcg .ROUTE .STK-MED ONE Stop: 07/16/17 16:33 Sodium Chloride (Normal Saline) Confirm Administered Dose 20 mls @ as directed .ROUTE .STK-MED ONE Stop: 07/16/17 16:33 Cefazolin Sodium/Dextrose 2 gm (/ Premix) 50 mls @ 100 mls/hr IV ONETIME ONE Stop: 07/16/17 17:21 Last Admin: 07/17/17 08:21 Dose: Not Given Ketorolac Tromethamine (Toradol) 30 mg IVPUSH Q6H FAIZA Stop: 07/17/17 20:01 Last Admin: 07/17/17 20:05 Dose: 30 mg Misoprostol (Cytotec) 25 mcg VAG .ONCE FAIZA Last Admin: 07/15/17 17:13 Dose: 25 mcg Misoprostol (Cytotec) 25 mcg PO ONETIME ONE Stop: 07/15/17 01:10 Last Admin: 07/15/17 02:14 Dose: 25 mcg Misoprostol (Cytotec) 25 mcg PO ONETIME ONE Stop: 07/15/17 06:01 Last Admin: 07/15/17 07:00 Dose: 25 mcg Misoprostol (Cytotec) 25 mcg VAG ONETIME ONE Stop: 07/15/17 06:36 Last Admin: 07/15/17 06:57 Dose: 25 mcg Misoprostol (Cytotec) 25 mcg PO ONETIME ONE Stop: 07/15/17 11:35 Last Admin: 07/15/17 11:58 Dose: 25 mcg Misoprostol (Cytotec) 25 mcg PO ONETIME ONE Stop: 07/15/17 11:37 Last Admin: 07/15/17 13:41 Dose: Not Given Misoprostol (Cytotec) 25 mcg PO ONETIME ONE Stop: 07/15/17 16:45 Last Admin: 07/15/17 17:12 Dose: 25 mcg Misoprostol (Cytotec) Confirm Administered Dose 25 mcg .ROUTE .STK-MED ONE Stop: 07/15/17 16:51 Last Admin: 07/17/17 16:43 Dose: Not Given Misoprostol (Cytotec) 25 mcg PO Q4H [facility]IZA Morphine Sulfate (Duramorph Pf) Confirm Administered Dose 1 mg .ROUTE .STK-MED ONE Stop: 07/16/17 16:33 Nalbuphine HCl (Nubain) 5 mg IVPUSH Q3H PRN PRN Reason: Pruritis Stop: 07/17/17 19:03 Last Admin: 07/17/17 06:27 Dose: 5 mg Octyl Cyanoacrylate (Dermabond Advance) Confirm Administered Dose 1 applic .ROUTE .STK-MED ONE Stop: 07/16/17 17:04 Ondansetron HCl (Zofran) Confirm Administered Dose 4 mg .ROUTE .STK-MED ONE Stop: 07/16/17 16:32 Oxycodone/Acetaminophen (Percocet 325-5 Mg) 1 tab PO Q6H PRN PRN Reason: Pain (moderate 4-6) Stop: 07/17/17 19:01 Last Admin: 07/16/17 22:47 Dose: 1 tab Oxytocin (Pitocin) Confirm Administered Dose 20 unit .ROUTE .STK-MED ONE Stop: 07/16/17 16:32 Phenylephrine HCl (Phenylephrine In Ns 100 Mcg/Ml) Confirm Administered Dose 1 mg .ROUTE .STK-MED ONE Stop: 07/16/17 17:59 Valacyclovir HCl (Valtrex) 1,000 mg PO DAILY [facility] Last Admin: 07/16/17 08:10 Dose: 1,000 mg - Exam General: Reports: Alert, Oriented HEENT: Reports: Pupils Equal, Pupils Reactive, EOMI, Mucous Membr. Moist/[place] Neck: Reports: Supple Lungs: Reports: Clear to Auscultation, Normal Respiratory Effort Cardiovascular: Reports: Regular Rate, Regular Rhythm GI/Abdominal Exam: Normal Bowel Sounds, Soft, Non-Tender, No Organomegaly, No Distention, No Abnormal Bruit, No Mass, Pelvis Stable (Female) Exam: Normal External Exam, Normal Speculum Exam, Normal Bimanual Exam Rectal (Female) Exam: Normal Exam, Normal Rectal Tone Back Exam: Reports: Normal Inspection, Full Range of Motion Extremities: Normal Inspection, Normal Range of Motion, Non-Tender, No Pedal Edema, Normal Capillary Refill Skin: Reports: Warm, Dry, Intact Wound/Incisions: Reports: Healing Well Neurological: Reports: No New Focal Deficit Psy/Mental Status: Reports: Alert, Normal Affect, Normal Mood
== END 2017-07-18 13:25 | disposition home or self-care (01) | DRG 766 ==
LOC: MW.OBCHECK 00:07 → MW.OB 00:10 → UNDOADMOB 01:18 → MW.OBCHECK 01:18 → MW.OB 01:18 → OBSVTOIN 18:21 → INTOOBSV 18:21 → OBSVTOIN 07-16 18:21 → MW.OB 07-16 18:21
PROVIDERS: ADMIT Obstetrics & Gynecology; ATTEND Obstetrics & Gynecology
PROC: 10D00Z1 Extraction of Products of Conception, Low, Open Approach (ICD-10-PCS; principal; 2017-07-16)
PROC: 3E0P7VZ Introduction of Hormone into Female Reproductive, Via Natural or Artificial Opening (ICD-10-PCS; 2017-07-16)
PROC: 3E033VJ Introduction of Other Hormone into Peripheral Vein, Percutaneous Approach (ICD-10-PCS; 2017-07-16)
DX: O13.4 Gestational [pregnancy-induced] hypertension without significant proteinuria, complicating childbirth (principal); O32.4XX0 Maternal care for high head at term, not applicable or unspecified; O09.513 Supervision of elderly primigravida, third trimester; Z3A.38 38 weeks gestation of pregnancy; Z37.0 Single live birth
CPT/HCPCS: 01961; 36415; 59025; 85014; 85018; 85027; 86850; 86900; 86901; 93005; A9270-GY; J0595; J0690; J1200; J1885; J2274; J2300; J2405; J2590; J3010; J7120